=== PATIENT | male | born 2000 | race American Indian/Alaskan Native ===

== ENCOUNTER 2021-02-04 17:09 | Emergency (ER) | payer OTHER ==
[2021-02-04 17:28] VITALS: BP 112/75; PULSE 91; TEMP 98.6; BMI 27.8
[2021-02-04] MEDS ORDERED: KETOROLAC TROMETHAMINE 30 MG/1 ML VIAL IM ONE (17:51)
[2021-02-04] MEDS ORDERED: KETOROLAC TROMETHAMINE 30 MG/1 ML VIAL ONE (17:53)
== END 2021-02-04 18:38 | disposition home or self-care (01) ==
LOC: JERFT 17:09
PROC: 3E0233Z Introduction of Anti-inflammatory into Muscle, Percutaneous Approach (ICD-10-PCS; principal; 2021-02-04)
DX: M25.561 Pain in right knee (principal)
CPT/HCPCS: 73562-TC-RT-FY; 99284-25

== ENCOUNTER 2021-02-19 04:19 | Day surgery (SDC) | payer OTHER ==
[2021-02-18 11:17] VITALS: BMI 27.8
[2021-02-19] MEDS ORDERED: BUPIVACAINE LIPOSOME/PF (EXPAREL) 266 MG/20 ML VIAL ONE (08:26)
[2021-02-19] MEDS ORDERED: BUPIVACAINE HCL/PF 0.5% (5MG/ML) 10 ML VIAL ONE (08:26)
[2021-02-19] MEDS ORDERED: MIDAZOLAM HCL 2 MG/2 ML SINGLE DOSE VIAL ONE ×2 (08:39)
[2021-02-19] MEDS ORDERED: PROPOFOL 20 ML ONE (11:11)
[2021-02-19] MEDS ORDERED: ROCURONIUM BROMIDE 50 MG/5 ML SYRINGE ONE (11:48)
[2021-02-19] MEDS ORDERED: ceFAZolin SODIUM 1 GM VIAL IVPB ONE (11:50)
[2021-02-19] MEDS ORDERED: ONDANSETRON 4 MG/2 ML VIAL ONE ×2 (11:51→13:30)
[2021-02-19] MEDS ORDERED: ceFAZolin SODIUM 1 GM VIAL ONE (11:51)
[2021-02-19] MEDS ORDERED: KETOROLAC TROMETHAMINE 30 MG/1 ML VIAL ONE ×2 (11:51→13:35)
[2021-02-19] MEDS ORDERED: DEXAMETHASONE SOD PHOSPHATE 4 MG/1 ML VIAL ONE ×2 (11:51→13:30)
[2021-02-19] MEDS ORDERED: oxyCODONE HCL 5 MG TABLET ONE ×2 (14:18→19:12)
[2021-02-19] MEDS ORDERED: ONDANSETRON 4 MG/2 ML VIAL IVPUSH PRN (14:18)
[2021-02-19] MEDS ORDERED: ACETAMINOPHEN 325 MG TABLET (FP) PO ONE ×2 (14:19→14:25)
[2021-02-19] MEDS ORDERED: ACETAMINOPHEN 325 MG TABLET (FP) ONE (14:19)
[2021-02-19] MEDS ORDERED: oxyCODONE HCL 5 MG TABLET PO ONE (14:24)
[2021-02-19] MEDS: ceFAZolin 2 GRAM PREMIX BAG IVPB ONE ×2 (17:59→20:33)
[2021-02-19] MEDS: oxyCODONE HCL 5 MG TABLET PO PRN (19:17)
[2021-02-19] MEDS: LACTATED RINGERS SOLUTION 1,000 ML IV SCH ×2 (20:34→20:46)
[2021-02-19] MEDS ORDERED: KETOROLAC TROMETHAMINE 30 MG/1 ML VIAL IVPB PRN (20:57)
[2021-02-20] MEDS: LACTATED RINGERS SOLUTION 1,000 ML IV SCH (06:44)
[2021-02-20] MEDS: oxyCODONE HCL 5 MG TABLET PO PRN ×2 (06:46→09:59)
[2021-02-20 09:56] VITALS: BP 103/61; PULSE 0; TEMP 98.9
== END 2021-02-20 11:43 | disposition home or self-care (01) ==
LOC: JASU-SURG 04:19 → J8W 20:44 → JASU-SURG 02-20 11:43
PROVIDERS: ATTEND Orthopaedic Surgery
PROC: 0MSN0ZZ Reposition Right Knee Bursa and Ligament, Open Approach (ICD-10-PCS; 2021-02-19)
PROC: 0QUD07Z Supplement Right Patella with Autologous Tissue Substitute, Open Approach (ICD-10-PCS; 2021-02-19)
PROC: 8E0YXBZ Computer Assisted Procedure of Lower Extremity (ICD-10-PCS; principal; 2021-02-19 12:00)
DX: S83.511A Sprain of anterior cruciate ligament of right knee, initial encounter (principal); X58.XXXA Exposure to other specified factors, initial encounter; Y93.9 Activity, unspecified; Y92.9 Unspecified place or not applicable; Y99.9 Unspecified external cause status
CPT/HCPCS: 20900; 27428; C1713; 88304-TC; 94760; 97116-GP; 97161-GP